=== PATIENT | female | born 1990 | race Caucasian/White ===

== ENCOUNTER → 2018-06-20 10:04 | Outpatient (CLI) | payer MEDICAID, SELFPAY ==
--- NOTE | 2018-06-20 10:08 | US_ITS ---
STUDY: ULTRASOUND BREAST - LEFT REASON FOR EXAM: Female, 28 years old. Two-week history of left breast lump. TECHNIQUE: Axial and longitudinal images of the LEFT breast were performed with a high resolution ultrasound transducer. COMPARISON: None. FINDINGS: LEFT Breast: The palpable area adjacent to the nipple was examined by ultrasound. No solid or cystic mass lesion is seen. US/Breast Limited Unilateral IMPRESSION: Unremarkable sonographic examination of the left periareolar region. ASSESSMENT CATEGORY: BIRADS Category 1: Negative. A letter regarding these results will be sent to the patient by the facility within 30 days. Electronically Signed: Zenon Wu MD at 8:16 EDT Tel [phone], Service support ,
== END ==
PROVIDERS: Visit Provider Obstetrics & Gynecology
DX: N63.23 Unspecified lump in the left breast, lower outer quadrant (principal)
CPT/HCPCS: 76642

== ENCOUNTER → 2018-07-10 11:40 | Outpatient (CLI) | payer MEDICAID, SELFPAY ==
[2018-07-10 15:47] LABS: Chlamydia Trachomatis by PCR Negative (Negative); Neisserai gonorrhoeae by PCR Negative (Negative); Probe Check PASS; Sample Adequacy Control PASS; Specimen Processing Control PASS
[2018-07-15 11:01] LABS: HPV Reflexed? NOT INDICATED
== END ==
PROVIDERS: Visit Provider Obstetrics & Gynecology
DX: Z12.72 Encounter for screening for malignant neoplasm of vagina (principal); Z12.4 Encounter for screening for malignant neoplasm of cervix; Z11.3 Encounter for screening for infections with a predominantly sexual mode of transmission
CPT/HCPCS: 87491; 87591; 88175; G0145

== ENCOUNTER 2018-09-26 12:06 | Emergency (ER) | payer MEDICAID, SELFPAY ==
[2018-09-26 12:07] VITALS: BP 124/86; PULSE 86; RESP 16; TEMP 36.8; O2SAT 100; BMI 22.7
--- NOTE | 2018-09-26 12:31 | RAD_ITS ---
STUDY: X-RAY - LEFT HIP REASON FOR EXAM: Female, 28 years old. Left hip pain TECHNIQUE: 2 views of the hip. Frontal view of the pelvis COMPARISON: None. FINDINGS: Normal femoral head, neck, intertrochanteric region and visualized proximal femur. Normal acetabulum. Normal hip joint. Normal visualized superior and inferior pubic rami and ischial tuberosities. RAD/HIP, UNI W/ Pelvis 2-3 Views IMPRESSION: Normal x-ray examination of the hip. Electronically Signed: Kervin Ernandez DO at 13:20 EST Tel , Service support ,
[2018-09-26] MEDS: HYDROcodone Bitartrate/Apap 5/325 Tablet PO (12:57)
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
--- NOTE | 2018-09-26 14:04 | ED.DEP ---
ED Disposition - Plan for ED Patient: Disposition: Home or Assisted Living Chief Complaint: Lower Extremity Injury Instructions: ED Sprain Hip Prescriptions: Hydrocodone Bitart/Apap 5-325 [[place] 5MG-325MG] 1 tablet PO Q6H PRN PRN 3 Days #10 tablet PRN Reason: Pain Naproxen [Naprosyn] 500 mg PO BID PRN PRN #20 tablet PRN Reason: Pain predniSONE tablet 40 mg PO DAILY #10 tablet Referrals: Siva Gilmore MD [STAFF PHYSICIAN] - As Needed
[2018-09-26 14:13] VITALS: RESP 16
== END 2018-09-26 14:13 | disposition home or self-care (01) ==
PROVIDERS: Emergency Provider Emergency Medicine
DX: S76.012A Strain of muscle, fascia and tendon of left hip, initial encounter (principal); Z72.0 Tobacco use; Z79.899 Other long term (current) drug therapy; X50.0XXA Overexertion from strenuous movement or load, initial encounter; Y93.89 Activity, other specified; Y92.89 Other specified places as the place of occurrence of the external cause; Y99.8 Other external cause status
CPT/HCPCS: 73502; 99283

== ENCOUNTER 2018-10-09 11:02 | Emergency (ER) | payer MEDICAID, SELFPAY ==
[2018-10-09 11:03] VITALS: BP 157/92; PULSE 108; RESP 18; TEMP 36.6; O2SAT 100; BMI 22.4
[2018-10-09 11:16] VITALS: BP 157/92; PULSE 108; RESP 18; TEMP 36.6; O2SAT 100
--- NOTE | 2018-10-09 11:30 | ED.DCSUM_ITS ---
- ER Visit Summary Date of Service: 10/09/18 Chief Complaint: Abscess History of Present Illness: The patient is a 28 F with a left eyebrow abscess. She was started on Bactrim 3 days ago, but it is not improving. Family history of MRSA. Denies fevers or systemic symptoms. Physical Examination: Patient has a 2 cm area of induration that is pointing over her left medial eyebrow. Extraocular motion normal. Otherwise exam unremarkable. Test Results: None performed Emergency Department Course and Treatment: I discussed treatment options. I explained that I could anesthetize the area and try a needle aspiration. I explained the risks. Patient asked about transfer to a tertiary care center to see the plastic surgeon. I advised that we could arrange transfer if she would like, but I cannot guarantee that a plastic surgeon would evaluate her. I offered to make an outpatient referral to plastic surgery, and she agreed with this. I gave her a couple surgeons to follow-up with. She will continue her Bactrim and warm compresses. Return for fever or systemic issues. Treatment Plan: As above Disposition: Discharge Impression: 1. Left eyebrow abscess This note was generated with [employer] dictation software. It may contain incorrect words, spelling, and punctuation that were not noted in review of the chart prior to signing ED Disposition - Plan for ED Patient: Referrals: Care Physician,No Primary [Primary Care Provider] -
--- NOTE | 2018-10-09 11:32 | DCINST.ED_ITS ---
ED Disposition - Plan for ED Patient: Instructions: ED Staph Infec Abx Tx Only Referrals: Neel العلي MD [STAFF PHYSICIAN] - Additional Instructions: also try [facility] plastic surgery, if needed,
== END 2018-10-09 11:44 | disposition home or self-care (01) ==
PROVIDERS: Emergency Provider Emergency Medicine
DX: L02.01 Cutaneous abscess of face (principal); Z72.0 Tobacco use; Z79.899 Other long term (current) drug therapy
CPT/HCPCS: 99282

== ENCOUNTER 2022-11-06 10:34 | Emergency (ER) | payer MEDICAID, SELFPAY ==
[2022-11-06 10:36] VITALS: BP 138/86; PULSE 87; RESP 18; TEMP 36.8; O2SAT 99; BMI 26.0
--- NOTE | 2022-11-06 10:51 | EDS_ITS ---
HPI History of Present Illness Chief Complaint: Headache Narrative Narrative: 32-year-old female past medical history of migraine headaches presents with headache that she has had for the last 2 days. She states that she used to have problems with migraine headaches, but no longer takes medication for it. The last time she had to come to the ED for a headache that lasted more than a day, was over a year ago. She presents with headache typical of her migraine headaches. Yesterday it was on the right side, now it is all over. It radiates into her neck as it has before. She endorses photophobia and phonophobia. She has not vomited today but yesterday had multiple episodes of nausea and vomiting. She denies any abdominal pain or diarrhea. No exacerbating or alleviating factors. She currently rates it an 8 out of 10. [facility] Medical History Anxiety Back pain Home Medications alprazolam 1 mg tablet (Xanax) 0.5 mg PO PRN PRN Anxiety 10/14/15 [History Last Taken Unknown] Allergy/AdvReac Type Severity Reaction Status Date / Time No Known Allergies Allergy Verified 11/06/22 10:37 Social History Smoking Status: Current every day smoker tobacco type: cigarettes ROS ROS ED ROS Narrative Constitutional: No fever, no chills. HEENT: No sore throat. No neck pain. No loss of vision. No rhinorrhea. Cardiovascular: No chest pain. No palpitations. No pedal edema. Respiratory: No cough, no shortness of breath. Abdominal: No abdominal pain. Positive nausea and vomiting yesterday-resolved. Genitourinary: No dysuria. No hematuria. Musculoskeletal: No myalgias. No arthralgias. Neurologic: Positive headache. No dizziness. No lightheadedness. No paresthesias. Positive photophobia and phonophobia. Skin: No rash. No change in color. Psychiatric: No depression. No anxiety. EXAM Physical Exam Narrative Exam Narrative: Afebrile. Vital signs noted. HEENT: Normocephalic. Atraumatic. PERRL, EOMI. Neck soft and supple. No point tenderness or step off. Cardiovascular: Regular rate and rhythm. No murmurs, rubs, or gallops appreciated. Respiratory: No tachypnea. Lungs clear to auscultation bilaterally. Gastrointestinal: Abdomen soft, nontender, with normoactive bowel sounds. No rebound or guarding. Neurological: Awake. Alert. Oriented x3. Nonfocal, nonlateralizing. DTRs equal and symmetric. No noted nystagmus. Skin: No rash. Normal color. No pallor. Musculoskeletal: No pedal edema. Full range of motion extremities. Const Vital Signs: 11/06/22 10:36 Temperature 98.2 F Temperature Source Temporal Pulse Rate 87 Respiratory Rate 18 Blood Pressure 138/86 H Blood Pressure Mean 103 Pulse Ox 99 Oxygen Delivery Method Room Air MDM MDM MDM Narrative Medical decision making narrative: I do feel that this is typical of her migraine headaches. I do not feel CT imaging of the brain is indicated. Otherwise, she has a normal neurological examination. She was bolused normal saline 1 L intravenously and administered Toradol, Compazine, and Benadryl, as when I mentioned the migraine cocktail she knew that it was 3 medications. I reviewed her prior records, and she has not had a visit recently here for migraine headache. After IV fluids and medication, patient was reassessed. She is resting comfortably with the lights off. She is easily awakened. She states her headache has improved by at least 2 points. At this point in time, I feel she can be discharged safely home with follow-up. She may need to see her primary care physician again to be started on medications if she is getting frequent headaches. Return instructions to the emergency department were reviewed. Disposition is discharged home in stable condition. History & Record Review Discussion w/independent historian: Patient and Family Additional record(s) reviewed:: Prior ED visit Discharge Plan Triage Chief Complaint: Headache ED Provider: Jose Servin Dx/Rx/DC Orders Clinical Impression: Migraine headache, Nausea and vomiting Instructions: ED, Migraine (Classical) Prescriptions: No Action alprazolam [Xanax] 1 MG tablet 0.5 mg PO PRN PRN (Reason: Anxiety) Primary Care Provider: JUSTO CHANDRA Referrals: [facility] Doctor,Out of [Non-Staff] - Activity Restrictions/Additional Instructions: Follow-up with your primary care provider as soon as possible if you are getting frequent headaches again. Disposition Disposition: Home, Self Care
[2022-11-06] MEDS: DiphenhydrAMINE 50 MG/ML Syringe 25 MG IV (11:39)
[2022-11-06] MEDS: 0.9% Normal Saline 1,000 ML 1000 ML IV (11:39)
[2022-11-06] MEDS: Ketorolac 30 MG/ML Syringe IV (11:43)
[2022-11-06] MEDS: proCHLORPERazine 10 MG/2 ML Vial IV (11:46)
[2022-11-06 12:46] VITALS: BP 127/86; PULSE 62; RESP 15; O2SAT 97
== END 2022-11-06 12:47 | disposition home or self-care (01) ==
PROVIDERS: Emergency Provider Emergency Medicine; Visit Provider Emergency Medicine
DX: G43.909 Migraine, unspecified, not intractable, without status migrainosus (principal); R11.2 Nausea with vomiting, unspecified; F17.210 Nicotine dependence, cigarettes, uncomplicated
CPT/HCPCS: 96374; 96375; 99283; J7030; A4216

== ENCOUNTER 2023-05-28 08:39 | Emergency (ER) | payer MEDICAID, SELFPAY ==
[2023-05-28 08:40] VITALS: BP 164/111; PULSE 89; RESP 18; TEMP 36.6; O2SAT 100; BMI 26.3
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
[2023-05-28] MEDS: Ibuprofen 400 MG Tablet 800 MG PO (08:59)
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
== END 2023-05-28 10:10 | disposition home or self-care (01) ==
PROVIDERS: Emergency Provider Emergency Medicine; Visit Provider Emergency Medicine
DX: S80.12XA Contusion of left lower leg, initial encounter (principal); S20.212A Contusion of left front wall of thorax, initial encounter; F17.210 Nicotine dependence, cigarettes, uncomplicated; V43.52XA Car driver injured in collision with other type car in traffic accident, initial encounter
CPT/HCPCS: 71046; 73590; 99284

== ENCOUNTER 2023-06-08 15:59 | Emergency (ER) | payer SELFPAY ==
[2023-06-08 16:00] VITALS: BP 160/89; PULSE 72; RESP 14; TEMP 36.1; O2SAT 100; BMI 24.5
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
[2023-06-08] MEDS: 0.9% Normal Saline (1000mL) 1,000 ML 999 ML IV (16:33)
[2023-06-08] MEDS: Metoclopramide 10 MG/2 ML Vial 5 MG IV (16:33)
[2023-06-08] MEDS: Acetaminophen 325 MG Tablet 650 MG PO (16:35)
[2023-06-08 18:10] VITALS: BP 141/91; PULSE 72; RESP 16; O2SAT 99
== END 2023-06-08 18:25 | disposition home or self-care (01) ==
PROVIDERS: Emergency Provider Emergency Medicine; Visit Provider Emergency Medicine
DX: R51.9 Headache, unspecified (principal); F17.210 Nicotine dependence, cigarettes, uncomplicated; V89.2XXA Person injured in unspecified motor-vehicle accident, traffic, initial encounter
CPT/HCPCS: 70450; 96374; 99282